=== PATIENT | female | born 1990 | race Hispanic/Latino ===

== ENCOUNTER 2019-03-01 13:18 | Inpatient (IN) | payer BC ==
[2019-03-01] MEDS ORDERED: Sodium Chloride 0.9% 1,000 ML IV STA (13:46)
[2019-03-01] MEDS ORDERED: Iohexol 240 (50 ml) PO ONE (13:53)
[2019-03-01] MEDS ORDERED: Iohexol 240 (50 ml) ONE (14:11)
[2019-03-01 14:23] LABS: BASO % 0.5 % (0.0-2.0); EOS % 0.5 % (0.0-4.0); HEMOGLOBIN 12.4 g/dL (12.0-16.0); LYMPH # 2.3 K/uL (1.0-4.3); LYMPH % 30.1 % (20.0-40.0); MEAN CELL VOLUME 86.5 fl (81.0-99.0); MEAN CORPUSCULAR HEMOGLOBIN 28.7 pg (27.0-31.0); MEAN CORPUSCULAR HGB CONC 33.1 g/dL (33.0-37.0); MEAN PLATELET VOLUME 8.2 fl (7.2-11.7); MONO # 0.6 K/uL (0.0-0.8); NEUT # 4.6 K/uL (1.8-7.0); NEUT % 60.9 % (50.0-75.0); RBC 4.32 Mil/uL (3.80-5.20); RED CELL DISTRIBUTION WIDTH 13.4 % (11.5-14.5); WHITE BLOOD COUNT 7.6 K/uL (4.8-10.8)
[2019-03-01 14:31] LABS: ALB/GLOB RATIO 1.6 (1.0-2.1); ALBUMIN 4.4 g/dL (3.5-5.0); ALT/SGPT 19 U/L (9-52); AST/SGOT 23 U/L (14-36); BLOOD UREA NITROGEN 7 mg/dl (7-17); CALCIUM 9.1 mg/dL (8.4-10.2); GFR NON-AFRICAN AMERICAN > 60; LIPASE 1289 U/L (23-300)
[2019-03-01] MEDS: Lactated Ringer's 1,000 ML IV SCH ×7 (15:15→23:00)
[2019-03-01 15:37] LABS: SQUAMOUS EPITHIAL < 1 /hpf (0-5); URINE BACTERIA RARE (<OCC); URINE BILIRUBIN NEGATIVE (NEGATIVE); URINE BLOOD NEGATIVE (NEGATIVE); URINE CLARITY CLEAR (Clear); URINE COLOR COLORLESS (YELLOW); URINE GLUCOSE (UA) NEG (NEGATIVE); URINE LEUKOCYTE ESTERASE NEG Leu/uL (Negative); URINE PROTEIN NEGATIVE (NEGATIVE); URINE UROBILINOGEN 0.2-1.0 mg/dL (0.2-1.0)
[2019-03-01 16:08] LABS: HDL CHOLESTEROL 58 MG/DL (30-70)
[2019-03-01 16:18] LABS: LDL CHOLESTEROL 58 mg/dL (0-129)
--- NOTE | 2019-03-01 16:36 | ED PDOC ---
HPI: Abdomen Time Seen by Provider: 03/01/19 13:39 Chief Complaint (Nursing): Abdominal Pain Chief Complaint (Provider): Abdominal Pain History Per: Patient History/Exam Limitations: no limitations Onset/Duration Of Symptoms: Days (x4) Current Symptoms Are (Timing): Still Present Additional Complaint(s): 28 year old female with medical history of hypertension, presents to the emergency department with a complaint of abdominal pain associated with mild nausea, anorexia, and fecal urgency for the past 4 days. Patient states that she drank 4 beers at a wedding on 02/24/19 then developed lower pelvis pain that radiates to her mid-abdomen, subsequently, the day after. She denies any similar episodes in the past, prior alcohol intolerance, fever, chills, chest pain, shortness of breath, bloody stools, history of IBD or other bowel disfunction. Additionally, she reports Trazodone use for sleeping aid. Past Medical History Reviewed: Historical Data, Nursing Documentation, Vital Signs Vital Signs: Last Vital Signs Temp 97.7 F 03/01/19 13:21 Pulse 84 03/01/19 13:21 Resp 17 03/01/19 13:21 BP 123/82 03/01/19 13:21 Pulse Ox 98 03/01/19 13:21 Primary Care Provider: Raulito Holland - Medical History PMH: Anxiety - Surgical History Surgical History: Tonsillectomy Other surgeries: ACL; dermoid cyst removal - Family History Family History: States: Unknown Family Hx - Social History Alcohol: Social Drugs: Denies - Immunization History Hx Tetanus Toxoid Vaccination: No Hx Influenza Vaccination: No Hx Pneumococcal Vaccination: No - Home Medications Home Medications: Ambulatory Orders Medication Instructions Recorded Lamotrigine [Lamictal] 175 mg PO DAILY 03/01/19 clonazePAM [Klonopin] 1 mg PO DAILY 03/01/19 traZODone [Desyrel] 100 mg PO DAILY 03/01/19 - Allergies Allergies/Adverse Reactions: Allergies Allergy/AdvReac Type Severity Reaction Status Date / Time No Known Allergies Allergy Verified 03/01/19 13:26 Review of Systems ROS Statement: Except As Marked, All Systems Reviewed And Found Negative Constitutional: Negative for: Fever, Chills ENT: Negative for: Throat Pain Cardiovascular: Negative for: Chest Pain Respiratory: Negative for: Shortness of Breath Gastrointestinal: Positive for: Nausea, Abdominal Pain (lower pelvis; mid-abdome n), Other (anorexia; fecal urgency). Negative for: Hematochezia Physical Exam - Reviewed Nursing Documentation Reviewed: Yes Vital Signs Reviewed: Yes - Physical Exam Appears: Positive for: Well, Non-toxic, No Acute Distress Head Exam: Positive for: ATRAUMATIC, NORMAL INSPECTION, NORMOCEPHALIC Skin: Positive for: Normal Color (well-hydrated). Negative for: Diaphoresis Eye Exam: Positive for: Normal appearance, EOMI, PERRL. Negative for: Conjunctival injection, Scleral icterus ENT: Positive for: Normal ENT Inspection, Moist Mucous Membranes Neck: Positive for: Normal Cardiovascular/Chest: Positive for: Regular Rate, Rhythm Respiratory: Positive for: Normal Breath Sounds. Negative for: Respiratory Distress Gastrointestinal/Abdominal: Positive for: Soft, Tenderness (mid). Negative for: Guarding, Rebound Extremity: Positive for: Normal ROM (upper/lower) Neurological/Psych: Positive for: Awake, Alert, Normal Tone - Laboratory Results Result Diagrams: 03/02/19 06:00 03/02/19 06:00 Lab Results: Total Bilirubin 0.4 mg/dl (0.2-1.3) 03/01/19 14:09 AST 23 U/L (14-36) 03/01/19 14:09 ALT 19 U/L (9-52) 03/01/19 14:09 Alkaline Phosphatase 46 U/L (38-126) 03/01/19 14:09 Total Protein 7.3 G/DL (6.3-8.2) 03/01/19 14:09 Albumin 4.4 g/dL (3.5-5.0) 03/01/19 14:09 Globulin 2.8 gm/dL (2.2-3.9) 03/01/19 14:09 Albumin/Globulin Ratio 1.6 (1.0-2.1) 03/01/19 14:09 Lipase 1289 U/L (23-300) H 03/01/19 14:09 Urine Color Colorless (YELLOW) 03/01/19 15:25 Urine Clarity Clear (Clear) 03/01/19 15:25 Urine pH 8.0 (5.0-8.0) 03/01/19 15:25 Ur Specific [place] < 1.005 (1.003-1.030) 03/01/19 15:25 Urine Protein Negative mg/dL (NEGATIVE) 03/01/19 15:25 Urine Glucose (UA) Neg mg/dL (NEGATIVE) 03/01/19 15:25 Urine Ketones Negative mg/dL (NEGATIVE) 03/01/19 15:25 Urine Blood Negative (NEGATIVE) 03/01/19 15:25 Urine Nitrate Negative (NEGATIVE) 03/01/19 15:25 Urine Bilirubin Negative (NEGATIVE) 03/01/19 15:25 Urine Urobilinogen 0.2-1.0 mg/dL (0.2-1.0) 03/01/19 15:25 Ur Leukocyte Esterase Neg Marcelino/uL (Negative) 03/01/19 15:25 Urine RBC (Auto) < 1 /hpf (0-3) 03/01/19 15:25 Urine Microscopic WBC < 1 /hpf (0-5) 03/01/19 15:25 Ur Squamous Epith Cells < 1 /hpf (0-5) 03/01/19 15:25 Urine Bacteria Rare (<OCC) 03/01/19 15:25 - ECG O2 Sat by Pulse Oximetry: 98 (RA) Pulse Ox Interpretation: Normal Medical Decision Making Medical Decision Making: Time: 1353 Initial Plan: work up for persistent abdominal pain. * Labs including UA * IV fluids * Omnipaque PO * Toradol IVP * Xanax PO Time: 1449 --Labs reviewed: (+) elevated lipase. Additional lipid and US ABD ordered. IV fluids changed to IV Lactated Ringer's. ETOH and UA are negative. Time: 1653 --US ABD FINDINGS: LIVER: Measures 16.4 cm in length. Normal echogenicity of the liver parenchyma. No mass. No intrahepatic bile duct dilatation. GALLBLADDER: Unremarkable. No gallstones. COMMON BILE DUCT: Measures 3.0 mm. No stones. No dilatation. PANCREAS: Unremarkable as visualized. No mass. No ductal dilatation. RIGHT KIDNEY: Measures 9.6 cm in length. Normal echogenicity. No calculus, mass, or hydronephrosis. AORTA: No aneurysmal dilatation. IVC: Unremarkable. OTHER FINDINGS: None. IMPRESSION: Unremarkable right upper quadrant abdomen ultrasound. etoh neg tox screen neg --------- Discussed w Dr Nicholas DIANE recommends CT abd pelv to see if any visual evidence of etiology/source for pancreatitis. Discussed results w Patient and family members (at permission of patient) - early impressions discussed and need for Obs explained given elevated lipase, bowel rest and IVF. Explained potential danger of triggers/etoh consumption moving forward. Scribe Attestation: Documented by La Reinoso, acting as a scribe for Luan Calhoun III, DO. Provider Scribe Attestation: All medical record entries made by the Scribe were at my direction and personally dictated by me. I have reviewed the chart and agree that the record accurately reflects my personal performance of the history, physical exam, medical decision making, and the department course for this patient. I have also personally directed, reviewed, and agree with the discharge instructions and disposition. Disposition - Clinical Impression Clinical Impression: Acute pancreatitis - Patient ED Disposition Is Patient to be Admitted: Yes Counseled Patient/Family Regarding: Studies Performed, Diagnosis, Need For Followup - Disposition Disposition Time: 16:45 Condition: GOOD
--- NOTE | 2019-03-01 16:57 | US ---
Date of service: 03/01/2019 HISTORY: RUQ r.o biliary colic +pancreatitis COMPARISON: None. TECHNIQUE: Sonographic evaluation of the right upper quadrant of the abdomen. FINDINGS: LIVER: Measures 16.4 cm in length. Normal echogenicity of the liver parenchyma. No mass. No intrahepatic bile duct dilatation. GALLBLADDER: Unremarkable. No gallstones. COMMON BILE DUCT: Measures 3.0 mm. No stones. No dilatation. PANCREAS: Unremarkable as visualized. No mass. No ductal dilatation. RIGHT KIDNEY: Measures 9.6 cm in length. Normal echogenicity. No calculus, mass, or hydronephrosis. AORTA: No aneurysmal dilatation. IVC: Unremarkable. OTHER FINDINGS: None . IMPRESSION: Unremarkable right upper quadrant abdomen ultrasound.
[2019-03-01] MEDS ORDERED: Lactated Ringer's 1,000 ML IV SCH (17:00)
--- NOTE | 2019-03-01 18:27 | CP.PCM.HP ---
<Sherrie Raines - Last Filed: 03/01/19 18:45> History of Present Illness - History of Present Illness History of Present Illness: CC: 28 YO Female with PMHx of anxiety presents to [facility] ED for abdominal pain. Pain is located in the epigastric area, sharp in nature and radiates to the back. Associated with nausea, no episodes of emesis thus far and no changes in BMs. Pain initially started on Monday morning, and has persisted for the past few days and worsend today. Patient states that before the onset of the pain, she had 3 beers Monday evening. Of note patient is on lamictal and clonipin for anxiety. Patient also uses marijuana 4x a week. PMHx: anxiety SurgHx: tonsilectomy, ACL repair, lap for dermoid cyst SHx: marijuana 4x a week, social ETOH, and denies tobacco FHx: breast cancer in grandmother, aunt, and HLD, hypertriglycerides in father Allergies: NKDA Meds: lamictal and clonipin for anxiety Present on Admission - Present on Admission Any Indicators Present on Admission: No Review of Systems - Constitutional Constitutional: absent: Chills, Fever - Cardiovascular Cardiovascular: absent: Chest Pain, Dyspnea - Respiratory Respiratory: absent: Cough, Dyspnea - Gastrointestinal Gastrointestinal: Abdominal Pain, Nausea. absent: Vomiting - Genitourinary Genitourinary: absent: Dysuria Past Patient History - Past Social History Smoking Status: Never Smoked Alcohol: Social Drugs: Cannabis Home Situation {Lives}: Alone - GENITOURINARY/GYNECOLOGICAL Other/Comment: Ruptured ovarian cyst 2010 - PSYCHIATRIC Hx Anxiety: Yes - SURGICAL HISTORY Hx Tonsillectomy: Yes - ANESTHESIA Hx Anesthesia: Yes Hx Anesthesia Reactions: No Meds Allergies/Adverse Reactions: Allergies Allergy/AdvReac Type Severity Reaction Status Date / Time No Known Allergies Allergy Verified 03/01/19 13:26 Physical Exam - Constitutional Appears: No Acute Distress, Other (standing, fit ) - Head Exam Head Exam: NORMAL INSPECTION - Eye Exam Eye Exam: EOMI, Normal appearance - ENT Exam ENT Exam: Mucous Membranes Moist - Respiratory Exam Respiratory Exam: Clear to Auscultation Bilateral, NORMAL BREATHING PATTERN. absent: Wheezes - Cardiovascular Exam Cardiovascular Exam: REGULAR RHYTHM, +S1, +S2 - GI/Abdominal Exam GI & Abdominal Exam: Normal Bowel Sounds, Soft, Tenderness (epigastric area ). absent: Distended, Guarding Additional comments: No abigail or genao's sign - Extremities Exam Extremities exam: Positive for: normal inspection. Negative for: calf tend erness, pedal edema - Back Exam Back exam: NORMAL INSPECTION. absent: CVA tenderness (L), CVA tenderness (R) - Neurological Exam Neurological exam: Alert, Oriented x3 - Psychiatric Exam Psychiatric exam: Normal Mood - Skin Skin Exam: Normal Color Results - Vital Signs Recent Vital Signs: Last Vital Signs Temp 97.7 F 03/01/19 13:21 Pulse 84 03/01/19 13:21 Resp 17 03/01/19 13:21 BP 123/82 03/01/19 13:21 Pulse Ox 98 03/01/19 17:09 - Labs Result Diagrams: 03/01/19 14:09 03/01/19 14:09 Labs: Laboratory Results - last 24 hr 03/01/19 03/01/19 03/01/19 14:09 14:09 15:25 WBC 7.6 RBC 4.32 Hgb 12.4 Hct 37.4 MCV 86.5 MCH 28.7 MCHC 33.1 RDW 13.4 Plt Count 189 MPV 8.2 Neut % (Auto) 60.9 Lymph % (Auto) 30.1 [place] % (Auto) 8.0 Eos % (Auto) 0.5 Baso % (Auto) 0.5 Neut # (Auto) 4.6 Lymph # (Auto) 2.3 [place] # (Auto) 0.6 Eos # (Auto) 0.0 Baso # (Auto) 0.0 Sodium 137 Potassium 4.2 Chloride 99 Carbon Dioxide 30 Anion Gap 12 BUN 7 Creatinine 0.6 L Est GFR ( Amer) > 60 Est GFR (Non-Af Amer) > 60 Random Glucose 85 Calcium 9.1 Total Bilirubin 0.4 AST 23 ALT 19 Alkaline Phosphatase 46 Total Protein 7.3 Albumin 4.4 Globulin 2.8 Albumin/Globulin Ratio 1.6 Triglycerides Cholesterol LDL Cholesterol Direct HDL Cholesterol Lipase 1289 H Urine Color Colorless Urine Clarity Clear Urine pH 8.0 Ur Specific [place] < 1.005 Urine Protein Negative Urine Glucose (UA) Neg Urine Ketones Negative Urine Blood Negative Urine Nitrate Negative Urine Bilirubin Negative Urine Urobilinogen 0.2-1.0 Ur Leukocyte Esterase Neg Urine RBC (Auto) < 1 Urine Microscopic WBC < 1 Ur Squamous Epith Cells < 1 Urine Bacteria Rare Alcohol, Quantitative 03/01/19 15:35 WBC RBC Hgb Hct MCV MCH MCHC RDW Plt Count MPV Neut % (Auto) Lymph % (Auto) [place] % (Auto) Eos % (Auto) Baso % (Auto) Neut # (Auto) Lymph # (Auto) [place] # (Auto) Eos # (Auto) Baso # (Auto) Sodium Potassium Chloride Carbon Dioxide Anion Gap BUN Creatinine Est GFR ( Amer) Est GFR (Non-Af Amer) Random Glucose Calcium Total Bilirubin AST ALT Alkaline Phosphatase Total Protein Albumin Globulin Albumin/Globulin Ratio Triglycerides 53 Cholesterol 137 LDL Cholesterol Direct 58 HDL Cholesterol 58 Lipase Urine Color Urine Clarity Urine pH Ur Specific [place] Urine Protein Urine Glucose (UA) Urine Ketones Urine Blood Urine Nitrate Urine Bilirubin Urine Urobilinogen Ur Leukocyte Esterase Urine RBC (Auto) Urine Microscopic WBC Ur Squamous Epith Cells Urine Bacteria Alcohol, Quantitative < 10 Assessment & Plan - Assessment and Plan (Free Text) Assessment: Assessment/Plan: 28 YO Female with PMHx of anxiety is admitted for acute pancreatitis. Acute Pancreatitis -likely 2/2 to psychotropic med, marijuana use and acute ETOH -no cholithiasis noted on US -triglycerides normal -lipase elevated -CT abd and pelvis pending -GI consulted follow up recs -c/w IV fluids, NPO and pain management Anxiety -will hold lamicidal for now given association with acute pancreatitis -reconcile med as needed DVT prolx -Lovenox SC <De La Paz,Judd D - Last Filed: 03/02/19 12:01> Results - Vital Signs Recent Vital Signs: Last Vital Signs Temp 98.2 F 03/02/19 08:21 Pulse 60 03/02/19 08:21 Resp 18 03/02/19 08:21 BP 107/66 03/02/19 08:21 Pulse Ox 95 03/02/19 08:21 - Labs Result Diagrams: 03/02/19 06:00 03/02/19 06:00 Labs: Laboratory Results - last 24 hr 03/01/19 03/01/19 03/01/19 14:09 14:09 15:25 WBC 7.6 RBC 4.32 Hgb 12.4 Hct 37.4 MCV 86.5 MCH 28.7 MCHC 33.1 RDW 13.4 Plt Count 189 MPV 8.2 Neut % (Auto) 60.9 Lymph % (Auto) 30.1 [place] % (Auto) 8.0 Eos % (Auto) 0.5 Baso % (Auto) 0.5 Neut # (Auto) 4.6 Lymph # (Auto) 2.3 [place] # (Auto) 0.6 Eos # (Auto) 0.0 Baso # (Auto) 0.0 Sodium 137 Potassium 4.2 Chloride 99 Carbon Dioxide 30 Anion Gap 12 BUN 7 Creatinine 0.6 L Est GFR ( Amer) > 60 Est GFR (Non-Af Amer) > 60 Random Glucose 85 Calcium 9.1 Total Bilirubin 0.4 AST 23 ALT 19 Alkaline Phosphatase 46 Total Protein 7.3 Albumin 4.4 Globulin 2.8 Albumin/Globulin Ratio 1.6 Triglycerides Cholesterol LDL Cholesterol Direct HDL Cholesterol Lipase 1289 H Urine Color Colorless Urine Clarity Clear Urine pH 8.0 Ur Specific [place] < 1.005 Urine Protein Negative Urine Glucose (UA) Neg Urine Ketones Negative Urine Blood Negative Urine Nitrate Negative Urine Bilirubin Negative Urine Urobilinogen 0.2-1.0 Ur Leukocyte Esterase Neg Urine RBC (Auto) < 1 Urine Microscopic WBC < 1 Ur Squamous Epith Cells < 1 Urine Bacteria Rare Alcohol, Quantitative 03/01/19 03/02/19 03/02/19 15:35 06:00 06:00 WBC 6.5 RBC 3.75 L Hgb 10.9 L Hct 32.5 L MCV 86.6 MCH 28.9 MCHC 33.4 RDW 13.6 Plt Count 153 MPV 8.2 Neut % (Auto) 55.3 Lymph % (Auto) 36.2 [place] % (Auto) 7.0 Eos % (Auto) 1.0 Baso % (Auto) 0.5 Neut # (Auto) 3.6 Lymph # (Auto) 2.3 [place] # (Auto) 0.5 Eos # (Auto) 0.1 Baso # (Auto) 0.0 Sodium 137 Potassium 4.2 Chloride 104 Carbon Dioxide 30 Anion Gap 7 L BUN 6 L Creatinine 0.6 L Est GFR ( Amer) > 60 Est GFR (Non-Af Amer) > 60 Random Glucose 75 Calcium 8.5 Total Bilirubin 0.5 AST 17 ALT 20 Alkaline Phosphatase 36 L D Total Protein 5.7 L Albumin 3.2 L D Globulin 2.5 Albumin/Globulin Ratio 1.3 Triglycerides 53 Cholesterol 137 LDL Cholesterol Direct 58 HDL Cholesterol 58 Lipase 20 L Urine Color Urine Clarity Urine pH Ur Specific [place] Urine Protein Urine Glucose (UA) Urine Ketones Urine Blood Urine Nitrate Urine Bilirubin Urine Urobilinogen Ur Leukocyte Esterase Urine RBC (Auto) Urine Microscopic WBC Ur Squamous Epith Cells Urine Bacteria Alcohol, Quantitative < 10 Attending/Attestation - Attestation I have personally seen and examined this patient.: Yes I have fully participated in the care of the patient.: Yes I have reviewed all pertinent clinical information: Yes Notes (Text): 03/02/19 12:00 Patient seen and examined with resident. Case discussed and agreed with assessment and plan of management.
[2019-03-01] MEDS ORDERED: Morphine 4 MG/ML VIAL IVP PRN (18:45)
--- NOTE | 2019-03-01 18:55 | CT ---
Date of service: 03/01/2019 PROCEDURE: CT Abdomen and Pelvis with contrast HISTORY: Abdominal pain. Acute pancreatitis suspected Negative test (concurrent with this examination). COMPARISON: March 01, 2019. Abdominal ultrasound TECHNIQUE: Intravenous contrast dose: 95 CC OMNIPAQUE 300. Radiation dose: Total exam DLP = <inf_radiation_dlp> mGy-cm. This CT exam was performed using one or more of the following dose reduction techniques: Automated exposure control, adjustment of the mA and/or kV according to patient size, and/or use of iterative reconstruction technique. FINDINGS: LOWER THORAX: Unremarkable. LIVER: Unremarkable. No gross lesion or ductal dilatation. GALLBLADDER AND BILE DUCTS: Unremarkable. PANCREAS: Unremarkable. No gross lesion or ductal dilatation. SPLEEN: Unremarkable. ADRENALS: Unremarkable. No mass. KIDNEYS AND URETERS: Unremarkable. No hydronephrosis. No solid mass. VASCULATURE: Unremarkable. No aortic aneurysm. No atherosclerotic calcification or mural plaque present. BOWEL: Unremarkable. No obstruction. No gross mural thickening. APPENDIX: A normal appendix is visualized in it's entirety. Please note the appendix is deeply situated in the pelvis superior to the urinary bladder. PERITONEUM: Unremarkable. No free fluid. No free air. Specifically common no evidence of acute pancreatitis. LYMPH NODES: Unremarkable. No enlarged lymph nodes. BLADDER: Bladder wall thickening likely reflects under filling. Clinically is there is suspicion of cystitis? REPRODUCTIVE: Enlarged, anteverted uterus containing multiple fibroids. BONES: No acute fracture. OTHER FINDINGS: None. IMPRESSION: No acute findings related to/ accounting for the clinical presentation. Specifically no evidence of acute pancreatitis. Additional benign and/or incidental findings described above.
[2019-03-01] MEDS ORDERED: DiphenhydrAMINE 50 mg/ml Inj IVP STA (22:35)
[2019-03-02 00:25] VITALS: RESP 18
[2019-03-02] MEDS: Lactated Ringer's 1,000 ML IV SCH ×10 (01:18→10:15)
[2019-03-02 07:43] LABS: BASO % 0.5 % (0.0-2.0); EOS # 0.1 K/uL (0.0-0.7); HEMOGLOBIN 10.9 g/dL (12.0-16.0); LYMPH # 2.3 K/uL (1.0-4.3); LYMPH % 36.2 % (20.0-40.0); MEAN CELL VOLUME 86.6 fl (81.0-99.0); MEAN CORPUSCULAR HEMOGLOBIN 28.9 pg (27.0-31.0); MEAN CORPUSCULAR HGB CONC 33.4 g/dL (33.0-37.0); MEAN PLATELET VOLUME 8.2 fl (7.2-11.7); MONO # 0.5 K/uL (0.0-0.8); NEUT # 3.6 K/uL (1.8-7.0); NEUT % 55.3 % (50.0-75.0); NRBC % 0.1 % (0.0-0.0); RBC 3.75 Mil/uL (3.80-5.20); RED CELL DISTRIBUTION WIDTH 13.6 % (11.5-14.5); WHITE BLOOD COUNT 6.5 K/uL (4.8-10.8)
[2019-03-02 07:46] LABS: ALB/GLOB RATIO 1.3 (1.0-2.1); ALBUMIN 3.2 g/dL (3.5-5.0); ALT/SGPT 20 U/L (9-52); AST/SGOT 17 U/L (14-36); BLOOD UREA NITROGEN 6 mg/dl (7-17); CALCIUM 8.5 mg/dL (8.4-10.2); GFR NON-AFRICAN AMERICAN > 60; LIPASE 20 U/L (23-300)
[2019-03-02 08:21] VITALS: BP 107/66; PULSE 60; TEMP 98.2
[2019-03-02] MEDS ORDERED: Enoxaparin 40 mg Syringe SC SCH (09:00)
--- NOTE | 2019-03-02 13:08 | CP.PCM.DIS ---
Provider - Provider Date of Admission: 03/01/19 17:15 Attending physician: Judd De La Paz MD Consults: 03/01/19 17:17 Gastroenterology Consult Stat Comment: Consulting Provider: Prasanna Peterson Consulting Physician: Prasanna Peterson Reason for Consult: acute pancreatitis, (Dr Peterson aware 515pm) Time Spent in preparation of Discharge (in minutes): 25 Diagnosis - Discharge Diagnosis (1) Pancreatitis Status: Acute Comment: improved. continue bland diet today then regular diet tomorrow if tolerated Hospital Course - Lab Results Lab Results: Most Recent Lab Values WBC 6.5 K/uL (4.8-10.8) 03/02/19 06:00 RBC 3.75 Mil/uL (3.80-5.20) L 03/02/19 06:00 Hgb 10.9 g/dL (12.0-16.0) L 03/02/19 06:00 Hct 32.5 % (34.0-47.0) L 03/02/19 06:00 MCV 86.6 fl (81.0-99.0) 03/02/19 06:00 MCH 28.9 pg (27.0-31.0) 03/02/19 06:00 MCHC 33.4 g/dL (33.0-37.0) 03/02/19 06:00 RDW 13.6 % (11.5-14.5) 03/02/19 06:00 Plt Count 153 K/uL (130-400) 03/02/19 06:00 MPV 8.2 fl (7.2-11.7) 03/02/19 06:00 Neut % (Auto) 55.3 % (50.0-75.0) 03/02/19 06:00 Lymph % (Auto) 36.2 % (20.0-40.0) 03/02/19 06:00 [place] % (Auto) 7.0 % (0.0-10.0) 03/02/19 06:00 Eos % (Auto) 1.0 % (0.0-4.0) 03/02/19 06:00 Baso % (Auto) 0.5 % (0.0-2.0) 03/02/19 06:00 Neut # (Auto) 3.6 K/uL (1.8-7.0) 03/02/19 06:00 Lymph # (Auto) 2.3 K/uL (1.0-4.3) 03/02/19 06:00 [place] # (Auto) 0.5 K/uL (0.0-0.8) 03/02/19 06:00 Eos # (Auto) 0.1 K/uL (0.0-0.7) 03/02/19 06:00 Baso # (Auto) 0.0 K/uL (0.0-0.2) 03/02/19 06:00 Sodium 137 mmol/l (132-148) 03/02/19 06:00 Potassium 4.2 MMOL/L (3.6-5.0) 03/02/19 06:00 Chloride 104 mmol/L (98-107) 03/02/19 06:00 Carbon Dioxide 30 mmol/L (22-30) 03/02/19 06:00 Anion Gap 7 (10-20) L 03/02/19 06:00 BUN 6 mg/dl (7-17) L 03/02/19 06:00 Creatinine 0.6 mg/dl (0.7-1.2) L 03/02/19 06:00 Est GFR ( Amer) > 60 03/02/19 06:00 Est GFR (Non-Af Amer) > 60 03/02/19 06:00 Random Glucose 75 mg/dL (65-105) 03/02/19 06:00 Calcium 8.5 mg/dL (8.4-10.2) 03/02/19 06:00 Total Bilirubin 0.5 mg/dl (0.2-1.3) 03/02/19 06:00 AST 17 U/L (14-36) 03/02/19 06:00 ALT 20 U/L (9-52) 03/02/19 06:00 Alkaline Phosphatase 36 U/L (38-126) L D 03/02/19 06:00 Total Protein 5.7 G/DL (6.3-8.2) L 03/02/19 06:00 Albumin 3.2 g/dL (3.5-5.0) L D 03/02/19 06:00 Globulin 2.5 gm/dL (2.2-3.9) 03/02/19 06:00 Albumin/Globulin Ratio 1.3 (1.0-2.1) 03/02/19 06:00 Triglycerides 53 mg/DL (0-149) 03/01/19 15:35 Cholesterol 137 mg/dL (0-199) 03/01/19 15:35 LDL Cholesterol Direct 58 mg/dL (0-129) 03/01/19 15:35 HDL Cholesterol 58 MG/DL (30-70) 03/01/19 15:35 Lipase 20 U/L (23-300) L 03/02/19 06:00 Urine Color Colorless (YELLOW) 03/01/19 15:25 Urine Clarity Clear (Clear) 03/01/19 15:25 Urine pH 8.0 (5.0-8.0) 03/01/19 15:25 Ur Specific [place] < 1.005 (1.003-1.030) 03/01/19 15:25 Urine Protein Negative mg/dL (NEGATIVE) 03/01/19 15:25 Urine Glucose (UA) Neg mg/dL (NEGATIVE) 03/01/19 15:25 Urine Ketones Negative mg/dL (NEGATIVE) 03/01/19 15:25 Urine Blood Negative (NEGATIVE) 03/01/19 15:25 Urine Nitrate Negative (NEGATIVE) 03/01/19 15:25 Urine Bilirubin Negative (NEGATIVE) 03/01/19 15:25 Urine Urobilinogen 0.2-1.0 mg/dL (0.2-1.0) 03/01/19 15:25 Ur Leukocyte Esterase Neg Marcelino/uL (Negative) 03/01/19 15:25 Urine RBC (Auto) < 1 /hpf (0-3) 03/01/19 15:25 Urine Microscopic WBC < 1 /hpf (0-5) 03/01/19 15:25 Ur Squamous Epith Cells < 1 /hpf (0-5) 03/01/19 15:25 Urine Bacteria Rare (<OCC) 03/01/19 15:25 Alcohol, Quantitative < 10 mg/dl (0-10) 03/01/19 15:35 - Hospital Course Hospital Course: 28 yo female with history of anxiety admitted because of abdominal pain associated with nausea but no vomiting. Condition was preceded with drinking 3-4 bottles of beer. Work ups showed elevation of serum lipase but no evidence of acute pancreatitis on CT scan of abdomen. Patient was managed with pain medication, IV hydration and with held PO intake. Today patient was pain free and able to tolerate food intake. She was discharged in stable condition. Discharge Exam - Head Exam Head Exam: NORMAL INSPECTION - Eye Exam Eye Exam: absent: Scleral icterus - ENT Exam ENT Exam: Mucous Membranes Moist - Respiratory Exam Respiratory Exam: absent: Rales, Rhonchi, Wheezes, Respiratory Distress - Cardiovascular Exam Cardiovascular Exam: REGULAR RHYTHM, +S1, +S2 - GI/Abdominal Exam GI & Abdominal Exam: Soft. absent: Tenderness - Rectal Exam Rectal Exam: Deferred - Neurological Exam Neurological exam: Alert, Oriented x3 - Psychiatric Exam Psychiatric exam: Normal Affect - Skin Skin Exam: Dry, Intact Discharge Plan - Follow Up Plan Condition: GOOD Disposition: HOME/ ROUTINE Instructions: Pancreatitis, Chronic Pancreatitis
--- NOTE | 2019-03-03 04:56 | DS ---
REFERRED BY: Dr. De La Paz. HISTORY OF PRESENT ILLNESS: This is a very pleasant 28-year-old young lady, who presented to the emergency room yesterday with a week's history of epigastric pain and discomfort, which got progressively worse upon coming to the emergency room where she was found to have an elevated lipase and she was referred for GI evaluation. At the time of my evaluation this morning, she is feeling much, much better. Denies any nausea, vomiting, odynophagia, dysphagia, or pain. She states that her pain is essentially gone. At no time did she have any hematemesis or any blood per rectum, melena, or any change in her bowel habits. She said this started after some social drinking last weekend. At home, she does take Lamictal, Klonopin, as well as trazodone. ALLERGIES: SHE HAS NO KNOWN DRUG ALLERGIES. PAST MEDICAL HISTORY: For anxiety. PAST SURGICAL HISTORY: Noncontributory, although she did have an ACL repair in the past and an ovarian cyst repair. FAMILY HISTORY: Noncontributory. There has been no history of pancreatic disease in the family. SOCIAL HISTORY: Denies tobacco or drug use. Social alcohol use. PHYSICAL EXAMINATION: GENERAL: She is a well-nourished and well-developed thin woman, awake, alert and oriented x3, in no acute distress at the present time. VITAL SIGNS: Stable. She is afebrile. ABDOMEN: Soft and flat with positive bowel sounds. No tenderness or distention is appreciated on examination. LABORATORY DATA: CBC is remarkable only for a hemoglobin of 10.9. SMA-7 was essentially unremarkable. LFTs were within normal limits. Her lipase yesterday was 1289, today it is down to 20. She did have an ultrasound, which was unremarkable. She had a CAT scan, which was essentially unremarkable as well. IMPRESSION AND PLAN: A 28-year-old woman with a case of pancreatitis, unclear what it is related to. She has been on her medications for some time, so I doubt that is the etiology. She said that she had been having a heavy drinking last weekend, but I wonder if that prompted this or perhaps some fatty or fried foods, which she says she eats a lot of that or something viral. Be that it may, she has improved dramatically. She has no CAT scan findings of pancreatitis and her lipase is normalized and; therefore, at this point in time, I will start her on clear liquids, advance as tolerated and then discharge home with outpatient followup. Prasanna Peterson MD
[2019-03-04 17:21] VITALS: O2SAT 98
== END 2019-03-02 14:22 | disposition home or self-care (01) | DRG 440 ==
LOC: H.ER 13:18 → H.ERHOLD 17:15 → H.MEDSURG1 21:49
DX: K85.90 Acute pancreatitis without necrosis or infection, unspecified (principal); F12.90 Cannabis use, unspecified, uncomplicated; F41.9 Anxiety disorder, unspecified; I10 Essential (primary) hypertension; Z80.3 Family history of malignant neoplasm of breast; Z79.899 Other long term (current) drug therapy; R15.2 Fecal urgency